=== PATIENT | male | born 1980 | race Caucasian/White ===

== ENCOUNTER 2018-11-23 21:10 | Emergency (ER) | payer OTHER ==
[~2018-11-23] VITALS: Ht 182.9 cm; Wt 90.9 kg
[2018-11-23 21:26] VITALS: Ht 182.9 cm; Wt 90.9 kg
[2018-11-23] MEDS ORDERED: TOPROL XL50 MG PO (21:27)
[2018-11-23] MEDS ORDERED: NORVASC10 MG PO (21:28)
[2018-11-23] MEDS ORDERED: NEXIUM20 MG PO (21:28)
[2018-11-23 23:39] VITALS: BP 138/82
== END 2018-11-23 23:40 | disposition home or self-care (01) ==
LOC: D.ER 21:10
DX: S81.011A Laceration without foreign body, right knee, initial encounter (principal); W26.8XXA Contact with other sharp object(s), not elsewhere classified, initial encounter; Y93.89 Activity, other specified; Y92.89 Other specified places as the place of occurrence of the external cause